=== PATIENT | male | born 1985 | race Caucasian/White ===

== ENCOUNTER 2018-06-22 08:36 | Emergency (ER) | payer BC ==
[2018-06-22] MEDS ORDERED: SODIUM CHLORIDE 1,000 ML IV STA (08:39)
[2018-06-22] MEDS ORDERED: FAMOTIDINE 20 MG/50 ML IVPB 20 MG/50 ML MG IVPB ONE ×2 (08:39→09:03)
--- NOTE | 2018-06-22 08:39 | PDOC ---
History of Present Illness - General Chief Complaint: Pain Stated Complaint: abdominal pain and back pain Time Seen by Provider: 06/22/18 08:38 History Source: Patient Exam Limitations: No Limitations - History of Present Illness Initial Comments: 06/22/18 09:48 Nabor Wheeler is a 33 YOM with h/o disc herniations, chronic back pain, meningioma presenting to the ED X 5 days of epigastric pain, decreased appetite, nausea and loose nonbloody stools. Described as dull aches in epigastrium, nonradiating , exacerbated by food intake. Occasional ASA and NSAID use for headache/back pain, but not increased last several days. of note his lower back pain has been exacerbated from hunching over with the AP , worse with movement and leg raising. denies trauma or fall +stressors including of father ~2 months ago and dealing with aftermath. No travel or sick contacts. Tolerating PO intake such as soup and liquids. No f/c, cp, sob, cough or congestion, urinary sx, vomiting or bloody output. Past Medical History: meningioma, back pain/disc herniations Social history: Lives with family. Occasional alcohol/tobacco. works in Law enforcement Surgical history: knee repair. GENERAL/CONSTITUTIONAL: No fever or chills. No weakness. HEAD, EYES, EARS, NOSE AND THROAT: No ear pain or discharge. No sore throat or mouth pain. No difficulty swallowing. No congestion. CARDIOVASCULAR: No chest pain or palpitations, syncope or edema. RESPIRATORY: No SOB, cough, wheezing, or hemoptysis. GASTROINTESTINAL +abdominal pain, nausea; +loose stools. no vomiting. No bloody stools GENITOURINARY: No hematuria, dysuria, frequency, urgency or other changes. MUSCULOSKELETAL: No joint or muscle swelling or pain. No neck or back pain. SKIN: No rash or changes in skin color or lesions. NEUROLOGIC: No headache, or dizziness HEMATOLOGIC/LYMPHATIC: No anemia, easy bruising/bleeding, or history of blood clots. ALLERGIC/IMMUNOLOGIC: No allergies All other systems reviewed and negative, or as documented in HPI. General: Well appearing, awake and alert, NAD. HEENT: NCAT, PERRL, EOMI, clear conjunctiva, anicteric, moist mucus membranes, clear oropharynx, no oral lesions.. Neck: neck supple, FROM Resp: CTAB, normal and even respirations, no respiratory distress CVS: RRR, no murmurs, 2+ peripheral pulses throughout, no peripheral edema Abdomen: soft, +epigastric TTP; no murphys or mcburneys point tenderness. No CVAT. Back: nontender, normal inspection and ROM. mild tenderness to sacrum to palp. MSK: no edema, BAE x4, ROM intact. No clubbing or cyanosis. normal bulk and tone. +SLR in RLE Neuro: alert Skin: warm and well perfused, cap refill <2 sec, normal color 06/22/18 09:50 06/22/18 09:50 Past History - Past Medical History Allergies/Adverse Reactions: Allergies Allergy/AdvReac Type Severity Reaction Status Date / Time No Known Allergies Allergy Verified 06/22/18 08:47 Home Medications: Ambulatory Orders Cyclobenzaprine HCl [Flexeril 10 mg] 10 mg PO TID PRN #15 tablet 06/22/18 Dicyclomine HCl [Bentyl -] 20 mg PO Q8H PRN #15 tablet 06/22/18 Lidocaine 5% Patch [Lidoderm Patch -] 1 patch TP DAILY #7 patch 06/22/18 Ondansetron [Zofran Odt -] 4 mg SL TID PRN #9 od.tablet 06/22/18 - Immunization History Immunization Up to Date: Yes - Suicide/Smoking/Psychosocial Hx Smoking History: Never smoked Number of Cigarettes Smoked Daily: 2 'Breaking Loose' booklet given: 03/05/14 Hx Alcohol Use: No Drug/Substance Use Hx: No Substance Use Type: None ED Treatment Course - LABORATORY CBC & Chemistry Diagram: 06/22/18 09:04 06/22/18 09:04 Medical Decision Making - Medical Decision Making 06/22/18 09:48 See HPI for details Vital signs reviewed, wnl. DDx. GERD, gastritis, PUD, pancreatitis, hepatitis, electrolyte/metabolic derangements, back strain/radiculopathy. no infectious sx. Prior notes reviewed, including admissions, discharges and consultations. laboratory results and imaging reviewed, basic labs and lytes wnl, notable for normal lipase and LFTs. ED course: given gi cocktail, tylenol for analgesia. pepcid, IVF and hydrated appropriately. bentyl and viscous lido additionally abdomen soft, nonperitoneal. no RUQ or RLQ tenderness to suggest ever/biliary pathology or appy. also there are stressors to suggest gastric inflammation vs ulcer, and only occasional nsaid/asa use - caution provided to patient back pain with +SLR, c/w known disc herniation in lumbosacral region, so treated with topical lidoderm patch and flexeril. food diary advised, avoid triggers; PRN zofran and bentyl; otc pepcid and maalox , hydration and flexeril for back pain, awaiting visit for epidural inj to back for disc herniation Dispo: Pt to be discharged in stable condition. Patient and family made aware of impression and plan, return precautions discussed (including but not limited to worsening pain or symptoms), RLQ or RUQ abdominal pain, fevers, or signs of infection, chest pain, respiratory distress, inability to tolerate oral intake, dehydration, syncope, or neurologic changes), changes in BM or bloody stools. Follow up with PMD and/or GI specialist as recommended, follow up information provided, take medications as instructed for duration of time. continue with supportive care, avoid triggers and precipitants. All questions answered to patient's satisfaction and expressed understanding and comfort with this. 06/22/18 09:50 06/22/18 10:40 06/22/18 11:08 *DC/Admit/Observation/Transfer Diagnosis at time of Disposition: Abdominal pain, epigastric, Back pain of lumbar region with sciatica - Discharge Dispostion Disposition: HOME Condition at time of disposition: Improved - Prescriptions Prescriptions: Cyclobenzaprine HCl [Flexeril 10 mg] 10 mg PO TID PRN #15 tablet PRN Reason: Muscle Spasms Dicyclomine HCl [Bentyl -] 20 mg PO Q8H PRN #15 tablet PRN Reason: Moderate Pain Lidocaine 5% Patch [Lidoderm Patch -] 1 patch TP DAILY #7 patch Ondansetron [Zofran Odt -] 4 mg SL TID PRN #9 od.tablet PRN Reason: Nausea And/Or Vomiting - Referrals Referrals: Justin Tyler MD [Primary Care Provider] - Andrew Bunch MD [Staff Physician] - Linda Max MD [Staff Physician] - Ricardo Colon MD [Staff Physician] - - Patient Instructions Printed Discharge Instructions: DI for Abdominal Pain-Adult, DI for Back Pain With Sciatica, DI for Nausea -- Adult, GERD Diet Additional Instructions: Your laboratory results were normal, Follow up with your physician and consultants as instructed, take your medications as instructed including zofran three times a day as needed for nausea. stay well hydrated, avoid food triggers, GERD diet provided. may also take flexeril Three times a day as needed for muscle spasms. lidoderm patch daily for the back pain, take off after 12 hours and replace after 12 hours. flexeril can make you feel sleepy, do not work, operate machinery or drive, may be best to take at nighttime or when you are home. Pepcid daily, it is over the counter Maalox four times a day with meals, to coat your stomach lining, that is also anti-gas remedies. bentyl three times a day as needed for mid abdominal pain and spasms Return if worsening symptoms including fevers, headache, vomiting, visual or hearing disturbances, bloody stools, abdominal pain (focal, worsening, right lower or right upper abdominal pain), chest pain, shortness of breath, syncope, dehydration, inability to take things by mouth/vomiting, altered mental status, or worsening concerning symptoms. your medications on discharge include_ side effects may include upset stomach, abdominal pain, vomiting, or diarrhea. do not drink alcohol with your medications. follow up with primary doctor as well as gastroenterology specialists, provided in discharge paperwork, who can do more work up for your stomach pains. - Post Discharge Activity
[2018-06-22 08:50] VITALS: TEMP 98.9; BMI 33.9
[2018-06-22] MEDS ORDERED: MAG HYDROX/AL HYDROX/SIMETH 30 ML UNIT-DOSE CUP PO ONE (08:55)
[2018-06-22] MEDS ORDERED: ONDANSETRON 4 MG/2 ML VIAL IVPUSH ONE (08:55)
[2018-06-22] MEDS ORDERED: ACETAMINOPHEN 1000 MG/100 ML VIAL (NON FORMULARY) IVPB ONE (08:56)
[2018-06-22] MEDS ORDERED: MAG HYDROX/AL HYDROX/SIMETH 30 ML UNIT-DOSE CUP ONE (09:05)
[2018-06-22] MEDS ORDERED: ONDANSETRON 4 MG/2 ML VIAL ONE (09:05)
[2018-06-22] MEDS ORDERED: ACETAMINOPHEN INJECTION 100 ML IVPB ONE (09:05)
[2018-06-22] MEDS ORDERED: LIDOCAINE 5% TOPICAL PATCH TP ONE (09:25)
[2018-06-22] MEDS ORDERED: LIDOCAINE PATCH REMOVAL MC ONE (09:25)
[2018-06-22] MEDS ORDERED: CYCLOBENZAPRINE HCL 5 MG TABLET PO ONE (09:25)
[2018-06-22] MEDS ORDERED: LIDOCAINE 5% TOPICAL PATCH ONE (09:32)
[2018-06-22] MEDS ORDERED: CYCLOBENZAPRINE HCL 10 MG TABLET (FP) ONE (09:32)
[2018-06-22 09:39] LABS: ALBUMIN 4.5 g/dl (3.5-5.0); ALK PHOS 49 U/L (32-92); ANION GAP 9 MMOL/L (8-16); BILIRUBIN,TOTAL 0.8 mg/dl (0.2-1.0); BLOOD UREA NITROGEN 14 mg/dl (7-18); CALCIUM 9.2 mg/dl (8.4-10.2); CHLORIDE 105 mmol/L (98-107); CO2 23 mmol/L (22-28); CREATININE 1.1 mg/dl (0.6-1.3); GLUCOSE,RANDOM 108 mg/dl (74-106); POTASSIUM 4.1 mmol/L (3.5-5.1); SGOT/AST 27 U/L (10-42); SGPT/ALT 32 U/L (10-40); SODIUM 137 mmol/L (136-145); TOT PROT 7.6 g/dl (6.4-8.3)
[2018-06-22 09:45] LABS: BASO % 0.2 % (0-2.0); EOS % 0.6 % (0-4.5); HEMATOCRIT 45.9 % (35.4-49); HEMOGLOBIN 15.1 GM/dl (11.7-16.9); LYMPH % 19.6 % (8-40); MCH 29.3 pg (25.7-33.7); MCHC 32.8 g/dl (32.0-35.9); MEAN CELL VOLUME 89.3 fl (80-96); MEAN PLT VOLUME 8.6 fl (7.5-11.1); MONO % 9.4 % (3.8-10.2); NEUT % 70.2 % (42.8-82.8); PLATELET COUNT 248 K/MM3 (134-434); RBC 5.14 M/mm3 (4.00-5.60); WHITE BLOOD COUNT 7.4 K/mm3 (4.0-10.8)
[2018-06-22] MEDS ORDERED: LIDOCAINE VISCOUS 2% ORAL/TOP 20 ML UNIT-DOSE CUP MM ONE (10:17)
[2018-06-22] MEDS ORDERED: DICYCLOMINE HCL 10 MG/5 ML PO ONE (10:18)
[2018-06-22] MEDS ORDERED: DICYCLOMINE HCL 10 MG CAPSULE ONE ×2 (10:33→10:40)
[2018-06-22] MEDS ORDERED: LIDOCAINE VISCOUS 2% ORAL/TOP 20 ML UNIT-DOSE CUP ONE (10:34)
[2018-06-22] MEDS ORDERED: DICYCLOMINE HCL 10 MG CAPSULE PO ONE (10:38)
[2018-06-22] MEDS ORDERED: DICYCLOMINE HCL 20 MG TABLET PO ONE (10:39)
[2018-06-22 10:59] LABS: LIPASE 111 U/L (73-393)
[2018-06-22 11:29] VITALS: BP 146/90; PULSE 68
[2018-06-22] MEDS ORDERED: LIDOCAINE PATCH REMOVAL MC SCH (22:00)
== END 2018-06-22 11:29 | disposition home or self-care (01) ==
LOC: FER 08:36
PROC: 3E033NZ Introduction of Analgesics, Hypnotics, Sedatives into Peripheral Vein, Percutaneous Approach (ICD-10-PCS; principal; 2018-06-22)
PROC: 3E033GC Introduction of Other Therapeutic Substance into Peripheral Vein, Percutaneous Approach (ICD-10-PCS; 2018-06-22)
PROC: 3E0337Z Introduction of Electrolytic and Water Balance Substance into Peripheral Vein, Percutaneous Approach (ICD-10-PCS; 2018-06-22)
DX: R10.13 Epigastric pain (principal); M54.30 Sciatica, unspecified side; M54.5 Low back pain; Z72.0 Tobacco use; G89.29 Other chronic pain
CPT/HCPCS: 36415; 80053; 83690; 85025; 99283-25; J0131; J7030

== ENCOUNTER 2018-07-30 08:13 | Emergency (ER) | payer BC ==
[2018-07-30 08:19] VITALS: BP 149/80; PULSE 95; TEMP 98.2; BMI 33.0
--- NOTE | 2018-07-30 08:54 | PDOC ---
History of Present Illness - General History Source: Patient - History of Present Illness Occurred: reports: other Lower Extremity Pain Location: left: leg <LatvianStorm - Last Filed: 07/30/18 10:38> <Alpesh Barragan - Last Filed: 08/02/18 09:23> - General Chief Complaint: Pain Stated Complaint: Pain, Acute Time Seen by Provider: 07/30/18 08:31 Past History - Past Medical History COPD: No Thyroid Disease: No Other medical history: DVT, meningioma - Surgical History Orthopedic Surgery: (LT ROTATOR CUFF, RT KNEE ARTHROSCOPY) - Immunization History Immunization Up to Date: Yes - Suicide/Smoking/Psychosocial Hx Smoking History: Never smoked Number of Cigarettes Smoked Daily: 2 'Breaking Loose' booklet given: 03/05/14 Hx Alcohol Use: No Drug/Substance Use Hx: No Substance Use Type: Alcohol Hx Substance Use Treatment: No <Storm Estrada - Last Filed: 07/30/18 10:38> <Alpesh Barragan - Last Filed: 08/02/18 09:23> - Past Medical History Allergies/Adverse Reactions: Allergies Allergy/AdvReac Type Severity Reaction Status Date / Time No Known Allergies Allergy Verified 07/30/18 08:15 Home Medications: Ambulatory Orders Apixaban [Eliquis -] 5 mg PO BID #60 tablet 08/01/18 Oxycodone HCl/Acetaminophen [Percocet 5-325 mg Tablet] 1 tab PO Q6H #20 tablet MDD 4 08/01/18 Pantoprazole Sodium [Protonix -] 40 mg PO DAILY #30 tablet.ec 08/01/18 Review of Systems - Review of Systems Constitutional: No: Chills, Fever Respiratory: No: Shortness of Breath Cardiac (ROS): No: Chest Pain, Palpitations <Storm Estrada - Last Filed: 07/30/18 10:38> *Physical Exam - Vital Signs Last Vital Signs Temp Pulse Resp BP Pulse Ox 98.2 F 95 H 18 149/80 99 07/30/18 08:16 07/30/18 08:16 07/30/18 08:16 07/30/18 08:16 07/30/18 08:16 - Physical Exam General Appearance: Yes: Appropriately Dressed. No: Apparent Distress HEENT: positive: Normal Voice Neck: positive: Supple Respiratory/Chest: positive: Lungs Clear, Normal Breath Sounds. negative: Respiratory Distress Cardiovascular: positive: Regular Rate, S1, S2 Extremity: positive: Normal Inspection, Tender (to L calf), Other (pedal pulses intact, no erythema). negative: Swelling Integumentary: positive: Dry, Warm Neurologic: positive: Fully Oriented, Alert, Normal Mood/Affect <Storm Estrada - Last Filed: 07/30/18 10:38> - Vital Signs Last Vital Signs Temp Pulse Resp BP Pulse Ox 98.2 F 95 H 18 149/80 99 07/30/18 08:16 07/30/18 08:16 07/30/18 08:16 07/30/18 08:16 07/30/18 08:16 <Alpesh Barragan - Last Filed: 08/02/18 09:23> Moderate Sedation - Procedure Monitoring Vital Signs: Procedure Monitoring Vital Signs Temperature 98.2 F 07/30/18 08:16 Pulse Rate 95 H 07/30/18 08:16 Respiratory Rate 18 07/30/18 08:16 Blood Pressure 149/80 07/30/18 08:16 O2 Sat by Pulse Oximetry (%) 99 07/30/18 08:16 <Storm Estrada - Last Filed: 07/30/18 10:38> - Procedure Monitoring Vital Signs: Procedure Monitoring Vital Signs Temperature 98.2 F 07/30/18 08:16 Pulse Rate 95 H 07/30/18 08:16 Respiratory Rate 18 07/30/18 08:16 Blood Pressure 149/80 07/30/18 08:16 O2 Sat by Pulse Oximetry (%) 99 07/30/18 08:16 <Alpesh Barragan - Last Filed: 08/02/18 09:23> ED Treatment Course - LABORATORY CBC & Chemistry Diagram: 07/30/18 09:43 07/30/18 09:43 - RADIOLOGY Radiology Studies Ordered: Category Date Time Status DUPLEX VASCUL US-1 LEG [US] Stat Ultrasound 07/30/18 08:41 Ordered <Storm Estrada - Last Filed: 07/30/18 10:38> - LABORATORY CBC & Chemistry Diagram: 07/30/18 09:43 07/30/18 09:43 - ADDITIONAL ORDERS Additional order review: 07/30/18 09:43 RBC 5.04 MCV 89.8 MCHC 33.1 RDW 15.0 MPV 7.4 L Neutrophils % 79.9 Lymphocytes % 12.8 D Monocytes % 6.4 Eosinophils % 0.5 Basophils % 0.4 - Medications Given in the ED: ED Medications Discontinued Medications Generic Name Dose Route Start Last Admin Trade Name Chavez PRN Reason Stop Dose Admin Apixaban 5 mg 07/30/18 09:51 07/30/18 10:05 Eliquis - PO 07/30/18 09:52 5 mg ONCE ONE Administration Tramadol HCl 50 mg 07/30/18 09:42 07/30/18 10:04 Ultram - PO 07/30/18 09:43 50 mg ONCE ONE Administration <Alpesh Barragna - Last Filed: 08/02/18 09:23> Medical Decision Making - Medical Decision Making 07/30/18 08:53 33 yo M, meningioma, multiple orthopedic surgeries, LLE DVT after "tearing calf muscle" per pt, here w/ severe pain LLE pain x several days. Had swelling initially that has resolved. No chest pain, shortness of breath or palpitations. No recent travel or injury See exam R/o recurrent DVT -US -pain control 07/30/18 09:52 US read as DVT to L popliteal and posterior tibial veins. Case discussed with patient's PMD, Dr. Tyler who recommends check H&H and dc with Eliquis 5 mg twice a day and for patient to follow up with his vascular doctor, Dr. Mayorga and to also follow-up with Dr. Tyler himself 07/30/18 10:37 Labs wnl. Stable for dc w/ vasc and pmd f/u. Strict return precautions given <Storm Estrada - Last Filed: 07/30/18 10:38> - Medical Decision Making 08/02/18 09:22 The patient was seen and evaluated in conjunction with KATHI Estrada under my direct supervision, ancillary studies were reviewed. I agree with the plan as outlined by KATHI Estrada . <Alpesh Barragan - Last Filed: 08/02/18 09:23> *DC/Admit/Observation/Transfer <Storm Estrada - Last Filed: 07/30/18 10:38> <Alpesh Barragan - Last Filed: 08/02/18 09:23> Diagnosis at time of Disposition: DVT (deep venous thrombosis) Qualifiers: DVT location: lower extremity Affected thrombotic vein of extremity: popliteal Chronicity: acute Laterality: left Qualified Code(s): I82.432 - Acute embolism and thrombosis of left popliteal vein - Discharge Dispostion Disposition: HOME Condition at time of disposition: Improved - Referrals Referrals: Justin Tyler MD [Primary Care Provider] - - Patient Instructions Printed Discharge Instructions: DI for Deep Vein Thrombosis Additional Instructions: You have a DVT in your left popliteal and posterior tibial veins. Take Eliquis as directed and tramadol as needed for pain. Please call Dr. Mayorga for an appointment this week. Please also follow-up with Dr. Tyler - Post Discharge Activity Forms/Work/School Notes: Back to Work
[2018-07-30] MEDS ORDERED: traMADol HCL 50 MG TABLET PO ONE (09:42)
[2018-07-30] MEDS ORDERED: APIXABAN 5 MG TABLET PO ONE ×2 (09:51→09:55)
[2018-07-30] MEDS ORDERED: traMADol HCL 50 MG TABLET ONE (09:55)
[2018-07-30 10:10] LABS: BASO % 0.4 % (0-2.0); EOS % 0.5 % (0-4.5); HEMATOCRIT 45.3 % (35.4-49); LYMPH % 12.8 % (8-40); MCH 29.8 pg (25.7-33.7); MCHC 33.1 g/dl (32.0-35.9); MEAN CELL VOLUME 89.8 fl (80-96); MEAN PLT VOLUME 7.4 fl (7.5-11.1); MONO % 6.4 % (3.8-10.2); NEUT % 79.9 % (42.8-82.8); PLATELET COUNT 201 K/MM3 (134-434); RBC 5.04 M/mm3 (4.00-5.60)
[2018-07-30 10:34] LABS: ALBUMIN 3.6 g/dl (3.4-5.0); ALK PHOS 59 U/L (45-117); ANION GAP 7 MMOL/L (8-16); BILIRUBIN,TOTAL 0.3 mg/dL (0.2-1); BLOOD UREA NITROGEN 11 mg/dL (7-18); CALCIUM 8.6 mg/dL (8.5-10.1); CHLORIDE 106 mmol/L (98-107); CO2 26 mmol/L (21-32); CREATININE 0.9 mg/dL (0.55-1.3); GLUCOSE,RANDOM 93 mg/dL (74-106); POTASSIUM 3.9 mmol/L (3.5-5.1); SGOT/AST 5 U/L (15-37); SGPT/ALT 25 U/L (13-61); SODIUM 139 mmol/L (136-145); TOT PROT 6.7 g/dl (6.4-8.2)
== END 2018-07-30 10:52 | disposition home or self-care (01) ==
LOC: JER 08:13
DX: I82.432 Acute embolism and thrombosis of left popliteal vein (principal); I82.442 Acute embolism and thrombosis of left tibial vein; Z86.718 Personal history of other venous thrombosis and embolism; Z79.01 Long term (current) use of anticoagulants
CPT/HCPCS: 36415; 80053; 85025; 93971-TC; 99281-25

== ENCOUNTER 2018-07-31 08:13 | Observation (INO) | payer BC ==
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
[2018-07-31 09:23] LABS: BASO % 0.2 % (0-2.0); EOS % 0.5 % (0-4.5); HEMOGLOBIN 14.4 GM/dL (11.7-16.9); LYMPH % 11.8 % (8-40); MCH 31.3 pg (25.7-33.7); MCHC 35.2 g/dl (32.0-35.9); MEAN PLT VOLUME 7.7 fl (7.5-11.1); MONO % 5.6 % (3.8-10.2); NEUT % 81.9 % (42.8-82.8); PLATELET COUNT 215 K/MM3 (134-434); RBC 4.61 M/mm3 (4.00-5.60); RDW 14.7 % (11.9-15.9); WHITE BLOOD COUNT 8.8 K/mm3 (4.0-10.0)
[2018-07-31] MEDS ORDERED: ACETAMINOPHEN 1000 MG/100 ML VIAL (NON FORMULARY) IVPB ONE (09:23)
--- NOTE | 2018-07-31 09:34 | PDOC ---
Attending Attestation - Medical Decision Making 07/31/18 11:41 Chest X-Ray was reviewed by Dr. Walker and over-read by Radiology. Impression: Normal chest. <Re Davis - Last Filed: 07/31/18 11:41> - Resident Resident Name: Emilia Olmos - ED Attending Attestation I have performed the following: I have examined & evaluated the patient, The case was reviewed & discussed with the resident, I agree w/resident's findings & plan - HPI HPI: 07/31/18 09:30 33-year-old male with history of DVT in 2013 status post anticoagulation and thrombectomy at that time, diagnosed with recurrent DVT during ED visit yesterday in the setting of 2-3 weeks of left leg cramping and pain presents now with gross hemoptysis and chest discomfort since yesterday. Patient noted that for the last week he has had questionable dyspnea, slight cough, but yesterday after discharge developed some hemoptysis and chest discomfort. The symptoms are nonexertional, no associated fevers or chills or pleuritic complement. No other DVT or PE risk factors other than history of DVT, he is currently on disability but is ambulatory daily without recent immobilization. Denies any smoking history or baseline lung disease, denies any drug use, his father did have PEs. - Physicial Exam PE: 07/31/18 09:33 Blood pressure 140/80, heart rate is 80, O2 sat is 98% on room air The patient is comfortable and well-appearing speaking full sentences lying on stretcher Heart is regular, lungs are clear without crackles or focally decreased breath sounds Left leg is tender and slightly swollen, otherwise neurovascularly intact - Critical Care Time Total Critical Care Time: 50 Critical Care Statement: The care of this patient involved high complexity decision making to prevent further life threatening deterioration of the patient 's condition and/or to evaluate & treat vital organ system(s) failure or risk of failure. - Medical Decision Making 07/31/18 09:33 33-year-old male with recurring DVT now with cardiopulmonary symptoms, most concerning for superimposed PE but rule out infectious process. Less consistent with ACS, hemodynamically. Labs, EKG CTA chest IV fluids Reassess 07/31/18 12:25 + PE with moderate clot burden on CTA. no evidence of alveolar hemorrhage. d/w pulm Dr. Rivera, adequate a/c on eliquis, will admit and follow <Frank Walker - Last Filed: 07/31/18 12:25> Heart Score/ECG Review #1 General ECG Interpretation: Sinus Rhythm, Normal Rate, Normal Intervals, No acute ischemic changes <Frank Walker - Last Filed: 07/31/18 12:25>
[2018-07-31 09:45] LABS: INR 1.08 (0.83-1.09); PROTHROMBIN TIME (PATIENT) 12.8 SEC (9.7-13.0)
[2018-07-31 09:48] LABS: ACTIVATED PTT 28.7 SECONDS (25.2-36.5)
[2018-07-31 09:53] LABS: ALBUMIN 3.3 g/dl (3.4-5.0); ALK PHOS 55 U/L (45-117); ANION GAP 6 MMOL/L (8-16); BILIRUBIN,TOTAL 0.2 mg/dL (0.2-1); BLOOD UREA NITROGEN 11 mg/dL (7-18); CALCIUM 8.1 mg/dL (8.5-10.1); CHLORIDE 106 mmol/L (98-107); CO2 29 mmol/L (21-32); CREATININE 0.9 mg/dL (0.55-1.3); GLUCOSE,RANDOM 115 mg/dL (74-106); N-TERMINAL BNP 38.4 pg/ml (5-125); SGOT/AST 13 U/L (15-37); SGPT/ALT 24 U/L (13-61); SODIUM 141 mmol/L (136-145); TOT PROT 6.2 g/dl (6.4-8.2)
[2018-07-31] MEDS ORDERED: ACETAMINOPHEN INJECTION 100 ML IVPB ONE (10:56)
--- NOTE | 2018-07-31 13:36 | HP ---
Admitting History and Physical - Admission Chief Complaint: 33 y.o M presented with unprovoked LLE DVT yesterday to ER. He was D/C on PO Eliquis but developed today cough, hemophthysis, chest pain and returned to the ER. Found to have PE. Admitted for further management. 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: Alzheimer's, CVA, Dementia, Migraine, Multiple Sclerosis, Peripheral Neuropathy, Parkinson's, Seizure, Syncope, TIA, Vertigo, Other Cardiovascular: No: AFIB, Aneurysm, Aortic Insufficiency, Aortic Stenosis, CAD, CHF, Deep Vein Thrombosis, HTN, Hyperlipdemia, [place], Mitral Insufficiency, Mitral Stenosis, Murmur, Pulmonary Hypertension, Other Pulmonary: No: Asthma, Bronchitis, Cancer, COPD, O2 Dependent, Pneumonia, Previously Intubated, Pulmonary Embolus, Pulmonary Fibrosis, Sleep Apnea, Other Gastrointestinal: Yes: Peptic Ulcer Disease Heme/Onc: No: Anemia, B12 Deficiency, Bleeding Disorder, Cancer, Current Chemotherapy, Current Radiation Therapy, Hemochromatosis, Hypercoaguable State, Myeloproliferative Synd, Sickle Cell Disease, Sickle Cell Trait, Thrombocytopenia, Other Infectious Disease: No: AIDS, C-Diff, Herpes Zoster, HIV, MRSA, STD's, Tuberculosis, VREF, Other Psych: No: Addictions, Anxiety, Bipolar, Depression, Panic, Psychosis, Schizophrenia, Other Musculoskeletal: No: Bursitis, Chronic low back pain, Hemiparesis, Hemiplegia, Osteoarthritis, Paraplegia, Other Rheumatology: No: Fibromyalgia, Gout, Lupus, Rheumatoid Arthritis, Sarcoidosis, Vasculitis, Other ENT: No: Allergic Rhinitis, Sinusitis, Other Endocrine: No: Melber's Disease, Debra's Disease, Diabetes Insipidus, Diabetes Mellitus, Hyperparathyroidism, Hyperthyroidism, Hypothyroidism, Osteopenia, SIADH, Other - Smoking History Smoking history: Never smoked Aproximately how many cigarettes per day: 2 - Alcohol/Substance Use Hx Alcohol Use: No Home Medications - Allergies Allergies/Adverse Reactions: Allergies Allergy/AdvReac Type Severity Reaction Status Date / Time No Known Allergies Allergy Verified 07/30/18 08:15 - Home Medications Home Medications: Ambulatory Orders Apixaban [Eliquis] 5 mg PO BID #60 tablet 07/30/18 Oxycodone HCl/Acetaminophen [Percocet 5/325 -] 1 tab PO Q6H #20 tablet MDD 4 doses 07/30/18 Family Disease History - Family Disease History Family Disease History: Other: Father (PE, CTAPH) Review of Systems - Review of Systems Constitutional: denies: No Symptoms, Chills, Diaphoresis, Fever, Lethargy, Loss of Appetite, Malaise, Night Sweats, Unintentional Wgt. Loss, Weakness, Other Eyes: denies: No Symptoms, Blind Spots, Blurred Vision, Double Vision, Eye Pain , Floaters, Photophobia, Recent Change in Vision, Other HENT: denies: No Symptoms, Difficult Swallowing, Ear Discharge, Ear Pain, Epistaxis, Gingival Bleeding, Hearing Loss, Mouth Swelling, Nasal Congestion, Ocular Prosthesis, Throat Pain, Toothache, Ringing in Ears, Other Neck: denies: No Symptoms, Decreased ROM, Lumps, Pain on Movement, Stiffness, Swollen Glands, Tenderness, Other Cardiovascular: reports: Chest Pain Respiratory: reports: Cough, Hemoptysis, SOB Gastrointestinal: denies: No Symptoms, Abdominal Pain, Bloating, Constipation, Diarrhea, Dysphagia, Indigestion, Melena, Nausea, Rectal Bleeding, Vomiting, Vomiting Blood, Other Genitourinary: reports: No Symptoms Breasts: denies: No Symptoms Reported, See HPI, Breast Implants, Discharge from Nipple, Lumps, Pain, Skin Changes, Other Integumentary: reports: No Symptoms Neurological: reports: No Symptoms Endocrine: reports: No Symptoms Hematology/Lymphatic: reports: No Symptoms Psychiatric: reports: No Symptoms Physical Examination Vital Signs: Vital Signs Temperature 98.7 F 07/31/18 08:22 Pulse Rate 78 07/31/18 11:16 Respiratory Rate 18 07/31/18 11:16 Blood Pressure 154/82 07/31/18 11:16 O2 Sat by Pulse Oximetry (%) 100 07/31/18 11:16 Constitutional: Yes: Anxious, Mild Distress Eyes: Yes: Conjunctiva Clear, EOM Intact HENT: Yes: Atraumatic, Normocephalic Neck: Yes: Supple, Trachea Midline Cardiovascular: Yes: Regular Rate and Rhythm, S1, S2. No: Tachycardia, Pulse Irregular, JVD, Gallop, Murmur Respiratory: Yes: Regular, Cough, Rales, SOB. No: Bradypnea, Dullness Gastrointestinal: Yes: Normal Bowel Sounds, Soft, Abdomen, Obese Renal/: No: Bladder Distention, CVA Tenderness - Left, CVA Tenderness - Right Breast(s): Yes: WNL Musculoskeletal: Yes: WNL Extremities: Yes: Calf Tenderness (left) Edema: LLE: 1+ Peripheral Pulses WNL: Yes Neurological: Yes: WNL ...Motor Strength: WNL Psychiatric: Yes: WNL Labs: CBC, BMP 07/31/18 09:10 07/31/18 09:10 Imaging - Results Cat Scan: Report Reviewed, Image Reviewed Problem List - Problems (1) Pulmonary emboli Assessment/Plan: Unprovoked PE/DVT , 2nd episode? Family Hx of PE ECHO-P PULM CONSULT Code(s): I26.99 - OTHER PULMONARY EMBOLISM WITHOUT ACUTE COR PULMONALE Qualifiers: Chronicity: acute (2) DVT (deep venous thrombosis) Assessment/Plan: po eLIQUIS Code(s): I82.409 - ACUTE EMBOLISM AND THOMBOS UNSP DEEP VN UNSP LOWER EXTREMITY Qualifiers: DVT location: lower extremity Affected thrombotic vein of extremity: popliteal Chronicity: acute Laterality: left Qualified Code(s): I82.432 - Acute embolism and thrombosis of left popliteal vein
--- NOTE | 2018-07-31 13:41 | CON.PULM ---
Consult Consult Specialty:: PULMONARY Referred by:: Dr. Tyler Reason for Consultation:: PE, hemoptysis - History of Present Illness Chief Complaint: hemoptysis History of Present Illness: 33yo male with h/o DVT in 2013 s/p thrombectomy and anticoagulation, seen yesterday in the ER for increasing left leg swelling and pain diagnosed with a DVT who now presents with episode of hemoptysis described as few tablespoons of bright red blood. Does report some chest tightness and palpitations as well as shortness of breath. No fevers, chills or sweats. His father also with history of PE/CTEPH. He is a nonsmoker. Denies recent trauma, prolonged immobilization. - History Source History Provided By: Patient, Medical Record Limitations to Obtaining History: No Limitations - Past Medical History Heme/Onc: Yes: Other (LLE DVT) - Alcohol/Substance Use Hx Alcohol Use: No - Smoking History Smoking history: Never smoked Aproximately how many cigarettes per day: 2 Home Medications - Allergies Allergies/Adverse Reactions: Allergies Allergy/AdvReac Type Severity Reaction Status Date / Time No Known Allergies Allergy Verified 07/30/18 08:15 - Home Medications Home Medications: Ambulatory Orders Apixaban [Eliquis] 5 mg PO BID #60 tablet 07/30/18 Oxycodone HCl/Acetaminophen [Percocet 5/325 -] 1 tab PO Q6H #20 tablet MDD 4 doses 07/30/18 Family Disease History - Family Disease History Family Disease History: Other: Father (PE/CTEPH) Review of Systems - Review of Systems Constitutional: reports: Weakness. denies: Chills, Fever Eyes: denies: Recent Change in Vision HENT: denies: Nasal Congestion, Throat Pain Neck: denies: Stiffness, Tenderness Cardiovascular: reports: Edema, Shortness of Breath. denies: Palpitations Respiratory: reports: Exercise Intolerance, Hemoptysis, SOB on Exertion. denies : Cough, Wheezing Gastrointestinal: denies: Abdominal Pain, Nausea, Vomiting Genitourinary: denies: Dysuria, Hematuria Neurological: denies: Dizziness, Headache Endocrine: denies: Unexplained Weight Loss Physical Exam Vital Sings: Vital Signs Temperature 98.7 F 07/31/18 08:22 Pulse Rate 78 07/31/18 11:16 Respiratory Rate 18 07/31/18 11:16 Blood Pressure 154/82 07/31/18 11:16 O2 Sat by Pulse Oximetry (%) 100 07/31/18 11:16 Constitutional: Yes: Calm Eyes: Yes: Conjunctiva Clear, EOM Intact HENT: Yes: Atraumatic, Normocephalic Neck: Yes: Supple, Trachea Midline Cardiovascular: Yes: Regular Rate and Rhythm Respiratory: Yes: Diminished (decreased breath sounds at the bases) ...Clubbing: No Gastrointestinal: Yes: Normal Bowel Sounds, Soft. No: Tenderness Edema: Yes (LLE) Neurological: Yes: Alert, Oriented Labs: CBC, BMP 07/31/18 09:10 07/31/18 09:10 Imaging - Results Chest X-ray: Report Reviewed, Image Reviewed Cat Scan: Report Reviewed, Image Reviewed (bilateral pulmonary emboli, LLL infarct) Assessment/Plan Acute Bilateral Pulmonary Emboli LLL Pulmonary Infarct Hemoptysis LLE DVT/Recurrent DVT Likely Hypercoagulable State - continue anticoagulation - O2 to keep SpO2 >90% - echocardiogram to assess right heart function - quantify/monitor hemoptysis - consider hematology eval, should get hypercoagulable work up given recurrent DVTs and family history of VTE Thank you for this consult Agustin Mejía MD
--- NOTE | 2018-07-31 16:10 | ECHO ---
Name: SAUL REDDY Exam:Adult Echocardiogram Study Date: 07/31/2018 03:09 PM Age: 33 yrs Reason For Study: CHF Height: 73 in Weight: 250 lb BSA: 2.4 m2 MMode/2D Measurements & Calculations IVSd: 1.6 cm Ao root diam: 3.6 cm LVIDd: 4.6 cm LA dimension: 3.7 cm LVIDs: 3.1 cm ACS: 2.3 cm LVPWd: 0.83 cm IVSs: 1.1 cm LVPWs: 1.4 cm EDV(Teich): 97.1 ml ESV(Teich): 37.1 ml Doppler Measurements & Calculations MV E max corby: 74.0 cm/sec Ao V2 max: 130.3 cm/sec MV A max corby: 49.1 cm/sec Ao max P.8 mmHg MV E/A: 1.5 Ao V2 mean: 97.8 cm/sec Ao mean P.0 mmHg Ao V2 VTI: 20.3 cm Med Peak E' Corby: 11.2 cm/sec Med E/e': 6.6 Lat Peak E' Corby: 20.4 cm/sec Lat E/e': 3.6 Left Ventricle Normal LV size and function. Ejection Fraction = 65%. Left Ventricular Filling pattern is normal for age. Right Ventricle Normal RV size and function. Atria Normal left and right atrial size and function. Mitral Valve The mitral valve leaflets appear normal. There is no evidence of stenosis, fluttering, or prolapse. Tricuspid Valve The tricuspid valve is not well visualized, but is grossly normal. There is trace tricuspid regurgita tion. Aortic Valve The aortic valve is normal in structure and function. Pulmonic Valve The pulmonic valve is not well seen, but is grossly normal. Great Vessels The aortic root is normal size. Interpretation Summary Ejection Fraction = 65%. Left Ventricular Filling pattern is normal for age. Normal RV size and function. Normal left and right atrial size and function. The mitral valve leaflets appear normal. There is no evidence of stenosis, fluttering, or prolapse. There is trace tricuspid regurgitation. The aortic root is normal size. MD Cj Botello 07/31/2018 04:09 PM
--- NOTE | 2018-07-31 18:11 | EKG ---
Test Reason : Blood Pressure : / mmHG Vent. Rate : 090 BPM Atrial Rate : 090 BPM P-R Int : 128 ms QRS Dur : 088 ms QT Int : 364 ms P-R-T Axes : 047 027 023 degrees QTc Int : 445 ms NORMAL SINUS RHYTHM NORMAL ECG Confirmed by MD GAIL, KARL ([id number]) on 07/31/2018 6:11:03 PM Referred By: Confirmed By:KARL REYNOLDS MD
--- NOTE | 2018-07-31 18:38 | CONSULT ---
Consult Consult Specialty:: Hemonc Referred by:: Dr. Tyler Reason for Consultation:: hypercoagulability - History of Present Illness History of Present Illness: 33 yo M PMH of DVT x2 s/p thrombectomy (1st DVT, started on AC 2nd DVT diagnosed yesterday 07/30/18), meningioma, PUD and herniated discs p/w shortness of breath, LE leg swelling and hemoptysis. Patient subsequently had CTA which showed acute left lobe PE. His father had history of PE w/ CTEPH. Denies any bleeding/clotting disorder, travel history, fever, chills, chest pain. 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: Alzheimer's, CVA, Dementia, Migraine, Multiple Sclerosis, Peripheral Neuropathy, Parkinson's, Seizure, Syncope, TIA, Vertigo, Other Cardio/Vascular: No: AFIB, Aneurysm, Aortic Insufficiency, Aortic Stenosis, CAD , CHF, Deep Vein Thrombosis, HTN, Hyperlipdemia, [place], Mitral Insufficiency, Mitral Stenosis, Murmur, Pulmonary Hypertension, Other Pulmonary: No: Asthma, Bronchitis, Cancer, COPD, O2 Dependent, Pneumonia, Previously Intubated, Pulmonary Embolus, Pulmonary Fibrosis, Sleep Apnea, Other Gastrointestinal: Yes: Peptic Ulcer Disease Infectious Disease: No: AIDS, C-Diff, Herpes Zoster, HIV, MRSA, STD's, Tuberculosis, VREF, Other Psych: No: Addictions, Anxiety, Bipolar, Depression, Panic, Psychosis, Schizophrenia, Other Musculoskeletal: No: Bursitis, Chronic low back pain, Hemiparesis, Hemiplegia, Osteoarthritis, Paraplegia, Other Rheumatology: No: Fibromyalgia, Gout, Lupus, Rheumatoid Arthritis, Sarcoidosis, Vasculitis, Other ENT: No: Allergic Rhinitis, Sinusitis, Other Endocrine: No: [place]'s Disease, [place]'s Disease, Diabetes Insipidus, Diabetes Mellitus, Hyperparathyroidism, Hyperthyroidism, Hypothyroidism, Osteopenia, SIADH, Other - Alcohol/Substance Use Hx Alcohol Use: No - Smoking History Smoking history: Never smoked Aproximately how many cigarettes per day: 2 Home Medications - Allergies Allergies/Adverse Reactions: Allergies Allergy/AdvReac Type Severity Reaction Status Date / Time No Known Allergies Allergy Verified 07/30/18 08:15 - Home Medications Home Medications: Ambulatory Orders Apixaban [Eliquis] 5 mg PO BID #60 tablet 07/30/18 Oxycodone HCl/Acetaminophen [Percocet 5/325 -] 1 tab PO Q6H #20 tablet MDD 4 doses 07/30/18 Family Disease History - Family Disease History Family Disease History: Other: Father (PE, CTAPH) Review of Systems - Review of Systems Constitutional: denies: Chills, Fever HENT: reports: No Symptoms Cardiovascular: reports: Edema, Palpitations Respiratory: reports: SOB Genitourinary: reports: No Symptoms Musculoskeletal: reports: No Symptoms Integumentary: reports: No Symptoms Neurological: reports: No Symptoms Hematology/Lymphatic: denies: Easily Bruised, Excessive Bleeding Physical Exam Vital Signs: Vital Signs Temperature 98.0 F 07/31/18 16:58 Pulse Rate 79 07/31/18 16:58 Respiratory Rate 18 07/31/18 16:58 Blood Pressure 131/67 07/31/18 16:58 O2 Sat by Pulse Oximetry (%) 100 07/31/18 16:58 Constitutional: Yes: No Distress, Calm Cardiovascular: Yes: Regular Rate and Rhythm, S1, S2. No: Murmur Respiratory: Yes: CTA Bilaterally, Diminished Gastrointestinal: Yes: Normal Bowel Sounds, Soft Edema: Yes Edema: LLE: 2+ Neurological: Yes: Alert, Oriented Psychiatric: Yes: Alert, Oriented Labs: CBC, BMP 07/31/18 09:10 07/31/18 09:10 Imaging - Results Cat Scan: Report Reviewed, Image Reviewed Assessment/Plan 33 year old male with a PMH of DVT x2, meningioma, PUD admitted to the hospital for acute b/l PE. 1. Acute b/l PE - strong family history of hypercoag - cont. eliquis 5mg BID - send protein c, protein s, AT III, anticardiolipin abs, factor V leiden Amilcar Painter PGY3 Visit type - Emergency Visit Emergency Visit: Yes ED Registration Date: 07/31/18 Care time: The patient presented to the Emergency Department on the above date and was hospitalized for further evaluation of their emergent condition. - New Patient This patient is new to me today: Yes Date on this admission: 07/31/18 - Critical Care Critical Care patient: No
[2018-07-31] MEDS ORDERED: APIXABAN 5 MG TABLET PO ONE (22:08)
[2018-07-31] MEDS: APIXABAN 5 MG TABLET PO SCH (22:11)
[2018-08-01 03:05] VITALS: BMI 32.3
[2018-08-01] MEDS: oxyCODONE HCL 5 MG TABLET PO PRN ×2 (05:37→09:54)
[2018-08-01] MEDS: ACETAMINOPHEN 325 MG TABLET (FP) PO PRN ×2 (05:38→09:55)
--- NOTE | 2018-08-01 07:58 | PN ---
Progress Note, Physician Chief Complaint: Left calf pain requires Percocet, Heme consult appreciated ECHO-WNL, no RV strain. - Current Medication List Current Medications: Active Medications Acetaminophen (Tylenol -) 325 mg PO Q4H PRN PRN Reason: PAIN LEVEL 6-10 Stop: 08/04/18 05:33 Last Admin: 08/01/18 05:38 Dose: 325 mg Apixaban (Eliquis -) 5 mg PO BID [facility] Last Admin: 07/31/18 22:11 Dose: 5 mg Oxycodone HCl (Roxicodone -) 5 mg PO Q4H PRN PRN Reason: PAIN LEVEL 6-10 Last Admin: 08/01/18 05:37 Dose: 5 mg Pantoprazole Sodium (Protonix -) 40 mg PO DAILY [facility] - Objective Vital Signs: Vital Signs Temperature 97.9 F 08/01/18 06:00 Pulse Rate 70 08/01/18 06:00 Respiratory Rate 18 08/01/18 06:00 Blood Pressure 137/80 08/01/18 06:00 O2 Sat by Pulse Oximetry (%) 95 08/01/18 01:30 Constitutional: Yes: Anxious, Mild Distress Eyes: Yes: Conjunctiva Clear, EOM Intact HENT: Yes: Atraumatic, Normocephalic Neck: Yes: Supple, Trachea Midline Cardiovascular: Yes: Regular Rate and Rhythm Respiratory: Yes: Regular, CTA Bilaterally Gastrointestinal: Yes: Normal Bowel Sounds, Soft ...Rectal Exam: Yes: Deferred Genitourinary: No: Anuria, Bladder Distention Breast(s): Yes: WNL Musculoskeletal: Yes: WNL Extremities: Yes: Other (Left calf swelling) Peripheral Pulses WNL: Yes Integumentary: Yes: WNL Neurological: Yes: WNL ...Motor Strength: WNL Psychiatric: Yes: WNL Labs: CBC, BMP 07/31/18 09:10 07/31/18 09:10 INR, PTT INR 1.08 (0.83-1.09) 07/31/18 09:10 Problem List - Problems (1) Pulmonary emboli 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 Pain management Code(s): I82.409 - ACUTE EMBOLISM AND THOMBOS UNSP DEEP VN UNSP LOWER EXTREMITY Qualifiers: DVT location: lower extremity Affected thrombotic vein of extremity: popliteal Chronicity: acute Laterality: left Qualified Code(s): I82.432 - Acute embolism and thrombosis of left popliteal vein (3) PUD (peptic ulcer disease) Assessment/Plan: Continue PROTONIX PO Code(s): K27.9 - PEPTIC ULC, SITE UNSP, UNSP AC OR CHR, W/O HEMOR OR PERF
--- NOTE | 2018-08-01 07:59 | DS ---
Physical Examination Vital Signs: Vital Signs Temperature 97.9 F 08/01/18 06:00 Pulse Rate 70 08/01/18 06:00 Respiratory Rate 18 08/01/18 06:00 Blood Pressure 137/80 08/01/18 06:00 O2 Sat by Pulse Oximetry (%) 95 08/01/18 01:30 Constitutional: Yes: Anxious, Mild Distress Eyes: Yes: Conjunctiva Clear, EOM Intact HENT: Yes: Atraumatic, Normocephalic Neck: Yes: Supple, Trachea Midline Cardiovascular: Yes: Regular Rate and Rhythm Respiratory: Yes: Regular, CTA Bilaterally, Cough Gastrointestinal: Yes: Normal Bowel Sounds ...Rectal Exam: Yes: Deferred Renal/: No: Anuria Breast(s): Yes: WNL Extremities: Yes: Other (Left calf edema) Peripheral Pulses WNL: Yes Integumentary: Yes: WNL Neurological: Yes: WNL ...Motor Strength: WNL Psychiatric: Yes: WNL Labs: CBC, BMP 07/31/18 09:10 07/31/18 09:10 Discharge Summary Reason For Visit: PULMONARY EMBOLISM, DVT Current Active Problems PUD (peptic ulcer disease) (Acute) Pulmonary emboli (Acute) Condition: Fair - Instructions Referrals: Justin Tyler MD [Primary Care Provider] - Disposition: HOME - Home Medications Comprehensive Discharge Medication List: Ambulatory Orders Apixaban [Eliquis] 5 mg PO BID #60 tablet 07/30/18 Oxycodone HCl/Acetaminophen [Percocet 5/325 -] 1 tab PO Q6H #20 tablet MDD 4 doses 07/30/18
[2018-08-01] MEDS ORDERED: PT OWN MED DRAWER 7, Y5N ONE (09:17)
[2018-08-01 09:55] VITALS: BP 132/80; PULSE 83; TEMP 98.2
[2018-08-01] MEDS ORDERED: PANTOPRAZOLE 40 MG TABLET (FP) PO SCH (10:00)
[2018-08-01] MEDS: APIXABAN 5 MG TABLET PO SCH (10:30)
[2018-08-03 02:17] LABS: PROTEIN C ACTIVITY 112 % (73-180)
== END 2018-08-01 10:43 | disposition home or self-care (01) ==
LOC: JER 08:13 → JERBED 12:17 → UNDOADMOB 12:17 → INTOOBSV 12:17 → JERBED 08-01 01:38 → J5S 08-01 01:38 → JERBED 08-01 07:59 → J5S 08-01 07:59
PROVIDERS: ADMIT Internal Medicine; ATTEND Internal Medicine
PROC: 3E033NZ Introduction of Analgesics, Hypnotics, Sedatives into Peripheral Vein, Percutaneous Approach (ICD-10-PCS; principal; 2018-08-01)
DX: I26.99 Other pulmonary embolism without acute cor pulmonale (principal); I82.432 Acute embolism and thrombosis of left popliteal vein; I82.442 Acute embolism and thrombosis of left tibial vein; K27.9 Peptic ulcer, site unspecified, unspecified as acute or chronic, without hemorrhage or perforation; Z79.01 Long term (current) use of anticoagulants; Z86.011 Personal history of benign neoplasm of the brain
CPT/HCPCS: 36415; 71045-TC-FY; 71275-TC; 80053; 81240; 82550; 83880; 84484; 85025; 85300; 85303; 85306; 85610; 85730; 93005; 93010; 93306-TC; 99285-25; G0378; J0131

== ENCOUNTER 2019-06-12 14:50 | Emergency (ER) | payer OTHER, BC ==
[2019-06-12 14:55] VITALS: BP 155/85; PULSE 73; TEMP 98.6; BMI 36.6
--- NOTE | 2019-06-12 14:56 | PDOC ---
Rapid Medical Evaluation Time Seen by Provider: 06/12/19 14:51 Medical Evaluation: Allergies Allergy/AdvReac Type Severity Reaction Status Date / Time No Known Allergies Allergy Verified 07/30/18 08:15 06/12/19 14:51 Pt presents for evaluation of lightheadedness and dizziness. Pt has history of DVT/PE, currently on on blood thinners (Eliquis). Pt states he has chest congestion and some chest pain. Admits to cough and headache as well. Took Advil at 10am. Exam: NAD, no accessory muscle use to breath Orders: EKG, chest x-ray Pt to proceed to the ER for further evaluation Discharge Disposition - Diagnosis Lightheaded - Referrals - Patient Instructions - Post Discharge Activity
--- NOTE | 2019-06-12 15:55 | PDOC ---
History of Present Illness - General Chief Complaint: Lightheaded Stated Complaint: HEADACHE/YPD Time Seen by Provider: 06/12/19 14:51 History Source: Patient Exam Limitations: No Limitations - History of Present Illness Initial Comments: Pt is a 34 yo M, with PMH of DVT/PE (LLE DVT x2, 1 prior leg thrombectomy, on Eliquis 5 mg PO BID), GERD/PUD, and stable meningioma, who is presenting with complaints of "feeling bad all over," chest pressure, and congestion x3 days. There are no exacerbating or alleviating factors to the chest pressure, "it is there all the time," and is not reproducible. Pt states he started going to the gym again after a year of absence ~3 days ago. Pt states he was at work today, and "wasn't feeling well and didn't look so good, so they told me to come get checked out". Pt has chronic LLE, with no recent changes, no recent surgery and no travel or bedrest. Pt denies any fevers/chills, headache, vision changes, syncope, palpitations, SOB, nausea/vomiting, abdominal pain, urinary symptoms, diarrhea/constipation, or leg swelling from baseline. Allergies: NKDA PCP: Jayson Deleonm: Dr. Mejía Heme: Dr. Ch Cards: Dr. Thompson Social: Pt denies any cigarette, alcohol, or drug use. Pt denies any recent travel or sick contacts. Surgical: LLE thrombectomy, see above; remote hx of shoulder rotator cuff repair , knee arthroscopy Family: Father - PE 06/12/19 18:30 Past History - Travel Traveled outside of the country in the last 30 days: No Close contact w/someone who was outside of country & ill: No - Past Medical History Allergies/Adverse Reactions: Allergies Allergy/AdvReac Type Severity Reaction Status Date / Time No Known Allergies Allergy Verified 06/12/19 14:54 Home Medications: Ambulatory Orders Apixaban [Eliquis -] 5 mg PO BID #60 tablet 08/01/18 Oxycodone HCl/Acetaminophen [Percocet 5-325 mg Tablet] 1 tab PO Q6H #20 tablet MDD 4 08/01/18 Pantoprazole Sodium [Protonix -] 40 mg PO DAILY #30 tablet.ec 08/01/18 COPD: No DVT: Yes (PE ON ELIQUIS) HTN: Yes Thyroid Disease: No - Surgical History Orthopedic Surgery: (LT ROTATOR CUFF, RT KNEE ARTHROSCOPY) - Immunization History Immunization Up to Date: Yes - Psycho Social/Smoking Cessation Hx Smoking History: Never smoked Number of Cigarettes Smoked Daily: 2 If you are a former smoker, when did you quit?: n Information on smoking cessation initiated: No 'Breaking Loose' booklet given: 03/05/14 Hx Alcohol Use: No Drug/Substance Use Hx: No Substance Use Type: Alcohol Hx Substance Use Treatment: No Cardiac Specific PMH - Complaint Specific PMHX Abdominal Aortic Aneurysm: No Angina: No Cardiac Arrhythmia: No Cardiac Stent: No GERD: Yes Myocardial Infarction: No Pacemaker: No Pulmonary Embolus: Yes Valvular Heart Disease: No Peripheral Vascular Disease: No Review of Systems - Review of Systems Able to Perform ROS?: Yes Is the patient limited Greek proficient: No Constitutional: Yes: Malaise, Weight Stable. No: Chills, Diaphoresis, Fever, Loss of Appetite, Weakness HEENTM: Yes: Nose Congestion. No: Recent change in vision, Throat Pain, Throat Swelling, Difficulty Swallowing Respiratory: Yes: Cough. No: Orthopnea, Shortness of Breath, Wheezing, Productive cough, Hemoptysis Cardiac (ROS): Yes: Chest Pain ("chest pressure and tightness"), Chest Tightness. No: Edema, Irregular Heart Rate, Lightheadedness, Palpitations, Syncope ABD/GI: No: Constipated, Diarrhea, Nausea, Poor Appetite, Poor Fluid Intake, Vomiting : No: Burning, Dysuria, Frequency, Flank Pain, Hematuria, Pain, Urgency Musculoskeletal: No: Back Pain, Joint Pain, Joint Swelling, Muscle Pain, Muscle Weakness Integumentary: No: Rash Neurological: No: Headache, Numbness, Seizure, Weakness, Unsteady Gait, Dizziness Psychiatric: No: Sleep Pattern Change, Change in Appetite Endocrine: No: Increased Urine, Change in Weight Hematologic/Lymphatic: Yes: See HPI, Blood Clots. No: Anemia, Easy Bleeding, Easy Bruising All Other Systems: Reviewed and Negative *Physical Exam - Vital Signs Last Vital Signs Temp Pulse Resp BP Pulse Ox 98.6 F 73 19 155/85 98 06/12/19 14:52 06/12/19 14:52 06/12/19 14:52 06/12/19 14:52 06/12/19 14:52 - Physical Exam Comments: Vitals stable, pt afebrile. Pt in NAD, able to speak in full sentences, lying comfortably on the bed. Obese body habitus. Pt alert and oriented x3. nursing clerk generally intact, muscular strength and sensation intact. No midline spinal tenderness, step-offs, or crepitus. Head normocephalic, atraumatic. Eyes PERRLA, EOMI. Oropharynx without erythema or exudates, no LAD b/l. +dry nasal congestion. Hearing intact. Clear heart sounds, S1/S2, no JVD, b/l pedal edema, or heart murmur. No reproducible chest wall TTP. +LLE calf tenderness, with no significant edema. Clear lung sounds, no respiratory distress, wheezes, crackles, or accessory muscle use. No abdominal or CVA tenderness to palpation, no rebound, no guarding. Abdomen soft, non-distended, and with normoactive bowel sounds. Skin without jaundice or rash. 06/12/19 18:47 ED Treatment Course - LABORATORY CBC & Chemistry Diagram: 06/12/19 16:54 06/12/19 16:54 - ADDITIONAL ORDERS Additional order review: Laboratory Results 06/12/19 06/12/19 06/12/19 20:45 16:54 16:54 PT with INR 11.30 INR 0.96 PTT (Actin FS) 23.7 L Sodium 143 Potassium 4.2 Chloride 108 H Carbon Dioxide 28 Anion Gap 7 L BUN 21.4 H Creatinine 1.1 Est GFR (CKD-EPI)AfAm 101.69 Est GFR (CKD-EPI)NonAf 87.74 Random Glucose 99 Calcium 8.5 Total Bilirubin 0.2 AST 179 H ALT 127 H Alkaline Phosphatase 56 Creatine Kinase 2962 H 4422 H Creatine Kinase Index 0.0 CK-MB (CK-2) 2.2 Troponin I < 0.02 < 0.02 Total Protein 6.6 Albumin 3.8 06/12/19 16:54 RBC 4.78 MCV 87.9 MCHC 33.6 RDW 13.7 MPV 7.9 Neutrophils % 75.4 Lymphocytes % 15.5 Monocytes % 6.7 Eosinophils % 1.9 Basophils % 0.5 - RADIOLOGY Radiology Studies Ordered: Category Date Time Status CHEST CTA [CT] Stat CT Scan 06/12/19 18:07 Completed DUPLEX VASCUL US-2LEGS [US] Stat Ultrasound 06/12/19 16:35 Completed - Medications Given in the ED: ED Medications Discontinued Medications Generic Name Dose Route Start Last Admin Trade Name Chavez PRN Reason Stop Dose Admin Acetaminophen 650 mg 06/12/19 17:22 06/12/19 17:28 Tylenol - PO 06/12/19 17:23 650 mg ONCE ONE Administration Sodium Chloride 1,000 mls @ 1,000 mls/hr 06/12/19 17:59 06/12/19 19:21 Normal Saline - IV 06/12/19 18:58 Not Given ASDIR STA Sodium Chloride 2,000 mls @ 1,000 mls/hr 06/12/19 18:08 06/12/19 18:23 Normal Saline - IV 06/12/19 19:58 1,000 mls/hr ASDIR STA Administration Medical Decision Making - Medical Decision Making Pt was seen at bedside, also will be seen by attending Dr. Silveira. Pt presenting with complaints of "feeling bad all over" and chest pressure. Will evaluate for PE/DVT vs ACS vs pericarditis vs electrolyte abnormalities vs rhabdomyolysis vs viral syndrome. Provided 650 mg PO tylenol for improvement of discomfort. Will continue to reassess pt and monitor for symptomatic improvement. ECG: NSR, intervals WNL (HR 72, LA 132, QRS 92, QTc 431). No TWIs or significant ST segment changes. No significant changes from prior ECG (01/28/2019 ). 06/12/19 18:56 CBC WNL CMP: BUN 21, AST 179, ALT 127, CK 4422 -- likely rhabdomyolysis from new recent gym use Pending UA Trop <.02 with no new EKG changes B/l LE doppler shows resolution of prior DVTs Providing 2L IV NS for possible rhabdo and will repeat cardiac profile (CK, trop ) Pt went for CTA to r/o PE; pending results. 06/12/19 19:03 CTA shows resolution of prior PE, no acute chest pathology. 06/12/19 20:16 CK down-trending after IVF administration. Second troponin negative. Pt safe for d/c to home. Pt advised to avoid salt and not to consume alcohol over the holidays. Pt has coworkers available to take him home. Strict return precautions provided with pt understanding. 06/12/19 21:33 Discharge - Discharge Information Problems reviewed: Yes Clinical Impression/Diagnosis: Lightheaded, Generalized body aches Rhabdomyolysis Qualifiers: Rhabdomyolysis type: non-traumatic Qualified Code(s): M62.82 - Rhabdomyolysis Condition: Improved Disposition: HOME - Admission No - Follow up/Referral Referrals: Justin Tyler MD [Primary Care Provider] - - Patient Discharge Instructions Patient Printed Discharge Instructions: DI for Rhabdomyolysis Additional Instructions: You were seen in the ER today for body aches and chest pressure. The results of your labs and imaging today showed resolution of your prior DVTs and PE, but did show release of enzyme from muscle breakdown, which we discussed. Please drink PLENTY OF FLUIDS OVER THE HOLIDAYS, AND AVOID ALCOHOL. Please follow-up with your primary care doctor within 1-2 days to discuss your visit and make sure your symptoms have improved. Please return to the ER if you have any worsening pain, development of fevers or chills, loss of consciousness, inability to tolerate food or fluids, or any other concerns. - Post Discharge Activity
--- NOTE | 2019-06-12 16:33 | PDOC ---
Attending Attestation - Resident Resident Name: Winter Monge - ED Attending Attestation I have performed the following: I have examined & evaluated the patient, The case was reviewed & discussed with the resident, I agree w/resident's findings & plan, Exceptions are as noted - HPI HPI: 06/12/19 17:10 34-year-old male history of prior DVT PE currently on Eliquis here today complaining of 3 days of intermittent chest pain. Patient states he does have a pleuritic component he does occasionally feel short of breath he has had persistent left leg swelling that is worse by prolonged standing ever since his previous DVT. Which she has noticed recently but no current changes. Has also had a recent cough and some upper airway congestion a little bit of nasal congestion denies any fevers or chills cough is nonproductive no family history of heart disease - Physicial Exam PE: 06/12/19 17:11 Awake alert no acute distress lungs are clear bilaterally heart is regular without murmurs rubs or gallops abdomen is soft and nontender skin is warm and dry extremities are warm well perfused there is no appreciated lower extremity edema he does have mild left calf tenderness 2+ DP PT pulses bilaterally. Neurologic patient is awake alert and oriented x3 - Medical Decision Making 06/12/19 17:11 34-year-old male history of previous PE DVT here today with intermittent chest pain and some shortness of breath with pleuritic component. Plan CT angios to rule out worsening DVT despite treatment. Doppler of the left lower extremity basic labs including cardiac rupture rule out ACS CT will evaluate for possible underlying infection such as pneumonia likely that this is a viral URI Heart Score/ECG Review #1 ECG reviewed & interpreted by me at: 16:33 General ECG Interpretation: Sinus Rhythm, Normal Rate (72), Normal Intervals, No acute ischemic changes Compared to previous ECG there are: Other (TWI III only.)
[2019-06-12 17:02] LABS: HEMOGLOBIN 14.1 GM/dL (11.7-16.9); NEUT % 75.4 % (42.8-82.8)
[2019-06-12 17:11] LABS: BASO % 0.5 % (0-2.0); EOS % 1.9 % (0-4.5); LYMPH % 15.5 % (8-40); MCH 29.5 pg (25.7-33.7); MCHC 33.6 g/dl (32.0-35.9); MEAN CELL VOLUME 87.9 fl (80-96); MEAN PLT VOLUME 7.9 fl (7.5-11.1); MONO % 6.7 % (3.8-10.2); PLATELET COUNT 244 K/MM3 (134-434); RBC 4.78 M/mm3 (4.00-5.60); RDW 13.7 % (11.9-15.9); WHITE BLOOD COUNT 9.3 K/mm3 (4.0-10.0)
[2019-06-12 17:13] LABS: INR 0.96 (0.83-1.09); PROTHROMBIN TIME (PATIENT) 11.3 SEC (9.7-13.0)
[2019-06-12 17:16] LABS: ACTIVATED PTT 23.7 SECONDS (25.2-36.5)
[2019-06-12] MEDS ORDERED: ACETAMINOPHEN 325 MG TABLET (FP) PO ONE (17:22)
[2019-06-12] MEDS ORDERED: ACETAMINOPHEN 325 MG TABLET (FP) ONE (17:25)
[2019-06-12 17:40] LABS: ALBUMIN 3.8 g/dl (3.4-5.0); ALK PHOS 56 U/L (45-117); ANION GAP 7 MMOL/L (8-16); BILIRUBIN,TOTAL 0.2 mg/dL (0.2-1); BLOOD UREA NITROGEN 21.4 mg/dL (7-18); CALCIUM 8.5 mg/dL (8.5-10.1); CHLORIDE 108 mmol/L (98-107); CO2 28 mmol/L (21-32); CREATININE 1.1 mg/dL (0.55-1.3); GLUCOSE,RANDOM 99 mg/dL (74-106); POTASSIUM 4.2 mmol/L (3.5-5.1); SGOT/AST 179 U/L (15-37); SGPT/ALT 127 U/L (13-61); SODIUM 143 mmol/L (136-145); TOT PROT 6.6 g/dl (6.4-8.2)
[2019-06-12] MEDS ORDERED: SODIUM CHLORIDE 1,000 ML IV STA (17:59)
[2019-06-12] MEDS ORDERED: SODIUM CHLORIDE 2,000 ML IV STA (18:08)
[2019-06-12 21:32] LABS: PH,URINE 6.5 (5.0-8.0); URINE APPEARANCE CLEAR; URINE BILIRUBIN NEGATIVE (NEGATIVE); URINE COLOR YELLOW; URINE GLUCOSE (UA) NEGATIVE (NEGATIVE); URINE KETONE NEGATIVE (NEGATIVE); URINE PROTEIN NEGATIVE (NEGATIVE)
[2019-06-12 21:33] LABS: URINE LEUK ESTERASE NEGATIVE (NEGATIVE); URINE NITRITE NEGATIVE (NEGATIVE); URINE UROBILINOGEN 0.2 mg/dL (0.2-1.0)
--- NOTE | 2019-06-13 11:37 | EKG ---
Test Reason : Blood Pressure : / mmHG Vent. Rate : 072 BPM Atrial Rate : 072 BPM P-R Int : 132 ms QRS Dur : 092 ms QT Int : 394 ms P-R-T Axes : 036 039 025 degrees QTc Int : 431 ms NORMAL SINUS RHYTHM NORMAL ECG WHEN COMPARED WITH ECG OF 31-JUL-2018 08:27, NO SIGNIFICANT CHANGE WAS FOUND Confirmed by NAREN BYERS MD ([id number]) on 06/13/2019 11:36:49 AM Referred By: Confirmed By:NAREN BYERS MD
== END 2019-06-12 21:46 | disposition home or self-care (01) ==
LOC: JER 14:50
PROC: 3E0337Z Introduction of Electrolytic and Water Balance Substance into Peripheral Vein, Percutaneous Approach (ICD-10-PCS; principal; 2019-06-12)
DX: M62.82 Rhabdomyolysis (principal)
CPT/HCPCS: 36415; 71275-TC; 80053; 81003; 82550; 82553; 84484; 85025; 85610; 85730; 93005; 93010; 93970-TC; 99284-25; J7030

== ENCOUNTER 2019-06-19 17:39 | Emergency (ER) | payer OTHER, BC ==
[2019-06-19 17:54] VITALS: BP 143/95; PULSE 110; TEMP 99.2; BMI 37.3
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
== END 2019-06-19 18:31 | disposition home or self-care (01) ==
LOC: JERFT 17:39
DX: S63.90XA Sprain of unspecified part of unspecified wrist and hand, initial encounter (principal); Y93.89 Activity, other specified; Y92.512 Supermarket, store or market as the place of occurrence of the external cause; Y99.0 Civilian activity done for income or pay; Y35.891A Legal intervention involving other specified means, law enforcement official injured, initial encounter; Z86.718 Personal history of other venous thrombosis and embolism; Z79.01 Long term (current) use of anticoagulants; Z72.0 Tobacco use; I10 Essential (primary) hypertension
CPT/HCPCS: 73130-TC-LT-FY; 73130-TC-RT-FY; 99281-25

== ENCOUNTER 2022-11-09 12:03 | Emergency (ER) | payer OTHER, BC ==
[2022-11-09 12:17] VITALS: BP 133/90; PULSE 63; RESP 16; TEMP 98.8; BMI 35.6
== END 2022-11-09 14:17 | disposition home or self-care (01) ==
LOC: FER 12:03
DX: S09.90XA Unspecified injury of head, initial encounter (principal); V89.2XXA Person injured in unspecified motor-vehicle accident, traffic, initial encounter; W22.8XXA Striking against or struck by other objects, initial encounter
CPT/HCPCS: 70450-TC; 99284-25